=== PATIENT | female | born 1970 | race Caucasian/White ===

== ENCOUNTER → 2016-07-09 | Day surgery (SDC) | payer MEDICAID ==
[~2016-07-09] MED LIST: Acetaminophen/oxyCODONE 325-5 MG Tab PO PRN; Bupivacaine 0.5% 10 ML SDV INJECT ONE; Bupivacaine 0.5% 10 ML SDV ONE; HYDROmorphone 1 MG/ML Syringe IV ONE; Ketamine 500 mg/10 ML MDV IV ONE; Lactated Ringers 1,000 ML IV ONE; Lactated Ringers 1,000 ML IV SCH; Lidocaine 1% 30 ML SDV INJECT ONE; Lidocaine 1% 30 ML SDV ONE; Midazolam 1 MG/ML 2 ML SDV IV ONE; Propofol 200 MG/20 ML SDV IV ONE; Sodium Chloride 0.9% 10 ML Syringe FLUSH PRN; ceFAZolin 1 GM in Premix Bag 1 BAG IV ONE; fentaNYL 100 MCG/2 ML SDV IV ONE
--- NOTE | 2016-07-09 12:15 | PCM.OPNOTE ---
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 [place] 3.0 cannulated, 3.0 locking and non locking with anchorage plate applied. 2.0 sourav to 4th met. Well padded splint applied.
[2016-07-09 14:24] VITALS: BP 106/69
--- NOTE | 2016-07-09 16:49 | OR ---
DATE: 07/09/2016 PREOPERATIVE DIAGNOSES: 1. Left foot dorsiflexed first metatarsal. 2. Right foot metatarsalgia. POSTOPERATIVE DIAGNOSES: 1. 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 2. Left foot metatarsalgia. PROCEDURE PERFORMED: 1. Left foot first metatarsal cuneiform nonunion excision with bone graft and plantar flexion of the first metatarsal. 2. Left foot fourth metatarsal dorsiflexion wedge osteotomy. ANESTHESIA: Local MAC with preoperative local block of 10 mL of 1:1 mixture of 1% lidocaine plain and 0.5% Marcaine plain. TOURNIQUET TIME: 131 minutes total, it was let down at 90 minutes and then put back up for 41 minutes. ESTIMATED BLOOD LOSS: Minimal. SPECIMEN: None. COMPLICATIONS: None. FINDINGS: There was a fibrous nonunion located at the first metatarsal cuneiform site at the prior bone grafting area. INDICATIONS: Jak is a 46-year-old female, who is status post left foot surgery. Approximately 3 years ago, I did a Lapidus procedure with a bone wedge to plantar flex and lengthen her first metatarsal. She did break through that previous surgical site. She is not really having any pain at the surgical site, however she is having pain to the metatarsals, mostly the fourth metatarsal. It is present whenever she is standing or walking and it feels like she is getting too much pressure under the ball of her foot. She has really not been able to go back to work, which is on her feet all day. We have tried multiple different offloading inserts with no relief. X-rays, 3-views of the right foot reveals some moderate shortening of first metatarsal since that first surgery was performed and also some elevation, she has two screws that broke at the surgical site. It appears that her fourth metatarsal head is more prominent plantarly than the remainder of the metatarsal head. There is also some cortical thickenings at the fourth metatarsal. No signs of fracture. It looks on x-rays that the first metatarsal cuneiform is healed. The patient voiced good understanding of proposed procedure and possible complications, and elects to have surgery at this time. DESCRIPTION OF PROCEDURE: The patient was taken to the operating room, lying in the supine position. After adequate anesthesia induction as described above, the left foot was prepped and draped in the usual sterile fashion. A pneumatic ankle tourniquet was inflated to 225 mmHg. Attention was then directed to the dorsal aspect of the medial foot overlying the first metatarsal cuneiform joint area. Incision was made at the prior incision area. Sharp and blunt dissection was performed down to the level of the extensor tendon and the periosteum. The #15 blade was used to incise the area at the first metatarsal cuneiform joint. It was noted at this time that the first metatarsal cuneiform joint had not healed together, where a prior bone graft had been inserted. Instead, this was a fibrotic nonunion and unstable. At this point, a Hintermann retractor was put in this area and the joint was retracted. All fibrotic nonunion material was excised using a curette and a bur. The curette was used down to good healthy bleeding bone. An osteotome was used to fenestrate the area as well as a 0.45 K- wire. Once all bad tissue was removed, a 6 mm allograft bone wedge was placed at the area. It was noted that the first metatarsal was plantar flexed a good amount at this time. A Erie 3.0 cannulated screw was then inserted across the first metatarsal through the graft into the medial cuneiform. The graft was noted to be stable and compressed at the arthrodesis site. X-ray was used to verify proper positioning of the graft and the first metatarsal on the graft. A Chantel Gogebic plate was then placed at the dorsal aspect of the arthrodesis site, and 3.0 locking and nonlocking screws were used to secure the plate. The area was then again verified with fluoroscopy and it was noted to be in proper positioning as well as all the screws, the bone graft was also noted to be stable and in a good position with good compression at that joint. A lateral was also used with a foot simulated weightbearing, and it was noted that the first metatarsal was in a good plantar flexed position. Attention was then directed to the fourth metatarsal, where an incision was made overlying the fourth MTPJ. Sharp and blunt dissection was made down to the level of the joint capsule, which was sharply incised. The fourth metatarsal head was exposed at this time, and a sagittal saw was used to make a bone cut starting just proximal to the articular cartilage of the fourth metatarsal and exiting just at the neck. Another bone cut was made to take a wedge out of this area so that the fourth metatarsal head would be dorsiflexed. A K-wire from the screw set was used as temporary fixation. Fluoroscopy was used to verify proper positioning of the metatarsal head and pin. The osteotomy site was fixated with a 2.0 cannulated screw. Fluoroscopy was then again used to verify proper amount of dorsiflexion of the fourth metatarsal head. The area was then irrigated with copious amounts of sterile saline. I did check the fourth MTPJ, and the screw was not entering the cartilage of that area. Deep closure was completed with 3- 0 Vicryl, and skin closure was completed with 4-0 nylon. The left foot was dressed with Xeroform to the incision site, fluffs, Webril, and a well-padded L and U splint with the foot in neutral position. The patient tolerated the procedure well and left the operating room for recovery with vital signs stable and in good condition with vascular status intact to the left foot as noted by immediate hyperemia to all digits upon deflation of the ankle tourniquet. She was discharged home nonweightbearing when she met hospital discharge requirements. [facility] /[id number]
== END ==
LOC: DL.SDS 07:08
PROVIDERS: ATTEND Podiatrist
DX: M77.41 Metatarsalgia, right foot (principal)
CPT/HCPCS: 28106; 28306; A9270; J0690; J1170; J2250; J2704; J3010; J7120; C1713; C1762

== ENCOUNTER 2017-01-14 08:29 | Day surgery (SDC) | payer MEDICAID ==
[~2017-01-14 08:29] MED LIST changes: -Acetaminophen/oxyCODONE 325-5 MG Tab PO PRN; -Bupivacaine 0.5% 10 ML SDV INJECT ONE; -Bupivacaine 0.5% 10 ML SDV ONE; -HYDROmorphone 1 MG/ML Syringe IV ONE; -Ketamine 500 mg/10 ML MDV IV ONE; -Lactated Ringers 1,000 ML IV ONE; -Lidocaine 1% 30 ML SDV INJECT ONE; -Lidocaine 1% 30 ML SDV ONE; -Midazolam 1 MG/ML 2 ML SDV IV ONE; -Propofol 200 MG/20 ML SDV IV ONE; -fentaNYL 100 MCG/2 ML SDV IV ONE
[2017-01-14] MEDS ORDERED: Propofol 1,000 MG/100 ML SDV IV ONE (08:30)
[2017-01-14] MEDS ORDERED: Midazolam 1 MG/ML 2 ML SDV IV ONE (08:30)
[2017-01-14] MEDS ORDERED: fentaNYL 100 MCG/2 ML SDV IV ONE (08:30)
[2017-01-14] MEDS ORDERED: Ketorolac 30 MG/ML SDV IVPUSH ONE (08:30)
[2017-01-14] MEDS ORDERED: Dexamethasone 4 MG/ML SDV IV ONE (08:30)
[2017-01-14] MEDS ORDERED: Ondansetron 4 MG/2 ML SDV IV ONE (08:30)
[2017-01-14] MEDS ORDERED: Bupivacaine 0.5% 10 ML SDV INJECT ONE ×5 (08:30→11:14)
[2017-01-14] MEDS ORDERED: Lidocaine 1% 30 ML SDV INJECT ONE ×5 (08:30→11:14)
[2017-01-14] MEDS ORDERED: Lidocaine 1% 30 ML SDV ONE (09:27)
[2017-01-14] MEDS ORDERED: Bupivacaine 0.5% 10 ML SDV ONE (09:27)
[2017-01-14] MEDS ORDERED: Midazolam 1 MG/ML 2 ML SDV ONE (09:31)
[2017-01-14] MEDS ORDERED: Ketorolac 30 MG/ML SDV ONE (09:32)
[2017-01-14] MEDS ORDERED: fentaNYL 100 MCG/2 ML SDV ONE (09:32)
[2017-01-14] MEDS ORDERED: Ondansetron 4 MG/2 ML SDV ONE (09:32)
[2017-01-14] MEDS ORDERED: Dexamethasone 4 MG/ML SDV ONE (09:32)
[2017-01-14] MEDS ORDERED: Acetaminophen/oxyCODONE 325-5 MG Tab PO PRN (11:51)
--- NOTE | 2017-01-14 11:54 | PCM.OPNOTE ---
- General Post-Op/Procedure Note Date of Surgery/Procedure: 01/14/17 Operative Procedure(s): left foot hardware removal, 3rd metatarsal condylectomy Pre Op Diagnosis: left foot hardware with 3rd metatarsalgia Post-Op Diagnosis: shady Anesthesia Technique: Local, MAC Primary Surgeon: Taryn Lee Anesthesia Provider: Oscar Robledo EBL in mLs: 5 Complications: none Condition: Good Free Text/Narrative:: Intake & Output 01/13/17 01/14/17 01/14/17 22:59 06:59 14:59 Intake Total 50 Balance 50 Pt tolerated procedure well and was transported to recovery with vascular status intact to left foot. TT 68 mins. Well padded compression dressing applied.
[2017-01-14 12:58] VITALS: BP 116/75
--- NOTE | 2017-01-18 08:22 | OR ---
DATE: 01/14/2017 PREOPERATIVE DIAGNOSES: 1. Left foot painful hardware. 2. Left foot third metatarsalgia. POSTOPERATIVE DIAGNOSES: 1. Left foot painful hardware. 2. Left foot third metatarsalgia. PROCEDURES PERFORMED: 1. Left foot hardware removal. 2. Left foot third metatarsal condylectomy. ANESTHESIA: Local MAC with preoperative local block of 10 mL of 1:1 mixture of 1% lidocaine plain and 0.5% Marcaine plain. TOURNIQUET TIME: Sixty eight minutes, pneumatic ankle tourniquet. ESTIMATED BLOOD LOSS: Minimal. SPECIMEN: None. COMPLICATIONS: None. INDICATIONS: Jak is a 46-year-old female, who presents status post left foot revision surgery back in July. She has been back into her regular shoes. She is still having pain in the ball of the foot, localized under the third digit area. This is worse when she is walking or during the push-off phase of gait. We have tried offloading inserts, metatarsal padding, and activity modifications with no relief. X-rays of the left foot reveal screw and plates intact to the left foot, the first metatarsal cuneiform has a screw broken at the proximal aspect, with the first metatarsal again shortened and dorsiflexed postoperatively. However it does appear that the fusion site is healing well with allograft incorporating. Metatarsals look to be healed with all screws intact. The patient voiced good understanding of proposed procedure and possible complications, elects to have surgery at this time. The patient was not having any pain at the fusion site and we agreed to keep the hardware in on that area and remove only the screws to the forefoot where she is having pain. DESCRIPTION OF THE PROCEDURE: The patient was taken the operating room, lying in supine position. After adequate anesthesia induction as described above, the left foot was prepped and draped in the usual sterile fashion. A pneumatic ankle tourniquet was inflated to 225 mmHg. Attention was then directed to the left foot forefoot where an approximately 4 cm linear incision was made overlying the third metatarsophalangeal joint area. Sharp and blunt dissection were performed down to the level of the metatarsal. Through this same incision, I was able to locate the screw at the second distal metatarsal and that was completely removed. I was also able to locate the screw on the fourth metatarsal which was completely removed. The screw at the third metatarsal head was then removed and fluoroscopy was used to take an axial view of the metatarsal heads. This did show a slightly prominent metatarsal and viewing intraoperatively, it did look like the condyle was prominent underneath that third metatarsal head. I did take a sagittal saw and removed the plantar condyles, I then took a rasp and I did rasp the area down, so it had nice smooth bone at the plantar aspect. I then took another fluoroscopy view to verify it was at the same level as the surrounding metatarsal heads. I then irrigated the area with copious amounts of sterile saline. I did feel for any prominences through the plantar skin, there was none noted. The deep closure was completed with 2-0 Vicryl and the skin closure was completed with 4-0 nylon. The area was dressed with Xeroform to the incision site, fluffs, Webril, and an Elías wrap. She was placed into a postoperative Cam boot. She tolerated the anesthesia and the procedure well and was transferred to recovery with vital signs stable and vascular status intact as noted by immediate hyperemia to all digits upon deflation of the ankle tourniquet. The patient was then discharged home when she met hospital discharge requirements. [facility] /[id number]
== END 2017-01-14 12:45 | disposition home or self-care (01) ==
LOC: DL.SDS 08:29
PROVIDERS: ATTEND Podiatrist
DX: T84.84XA Pain due to internal orthopedic prosthetic devices, implants and grafts, initial encounter (principal); M77.42 Metatarsalgia, left foot; F41.8 Other specified anxiety disorders; J45.909 Unspecified asthma, uncomplicated; E03.9 Hypothyroidism, unspecified; Z98.890 Other specified postprocedural states; Z90.49 Acquired absence of other specified parts of digestive tract; Z98.51 Tubal ligation status; Z79.899 Other long term (current) drug therapy; J30.2 Other seasonal allergic rhinitis; F17.210 Nicotine dependence, cigarettes, uncomplicated
CPT/HCPCS: 20680; 28112; 76000; 81025; J0690; J1100; J1885; J2250; J2405; J2704; J3010; J7120

== ENCOUNTER 2021-08-04 05:23 | Day surgery (SDC) | payer MEDICAID, MEDICARE, OTHER ==
[2021-08-04] MEDS ORDERED: fentaNYL 100 MCG/2 ML SDV IV ONE ×7 (05:24→07:00)
[2021-08-04] MEDS ORDERED: Midazolam 1 MG/ML 2 ML SDV IV ONE ×7 (05:24→06:50)
[2021-08-04] MEDS ORDERED: fentaNYL 100 MCG/2 ML SDV ONE (05:57)
[2021-08-04] MEDS ORDERED: Midazolam 1 MG/ML 2 ML SDV ONE (05:57)
[2021-08-04] MEDS ORDERED: Sodium Chloride 0.9% 10 ML Syringe FLUSH PRN (07:28)
[2021-08-04] MEDS ORDERED: Dextrose 5%-0.45% NaCl 1,000 ML IV SCH (07:30)
[2021-08-04] MEDS ORDERED: Sodium Chloride 0.9% 10 ML Syringe FLUSH SCH (09:00)
[2021-08-04 15:23] VITALS: BP 106/63; PULSE 76
== END 2021-08-04 09:11 | disposition home or self-care (01) ==
LOC: DL.ENDO 05:23
PROVIDERS: ATTEND Internal Medicine Gastroenterology
DX: Z12.11 Encounter for screening for malignant neoplasm of colon (principal); K57.30 Diverticulosis of large intestine without perforation or abscess without bleeding; F17.210 Nicotine dependence, cigarettes, uncomplicated; E66.09 Other obesity due to excess calories; F41.1 Generalized anxiety disorder; E03.9 Hypothyroidism, unspecified; Z90.49 Acquired absence of other specified parts of digestive tract; Z98.890 Other specified postprocedural states; Z68.36 Body mass index [BMI] 36.0-36.9, adult
CPT/HCPCS: J2250; J3010; J7042

== ENCOUNTER 2023-10-17 00:55 | Emergency (ER) | payer MEDICARE, MEDICAID ==
[2023-10-17 01:18] VITALS: BP 116/76; PULSE 90
[2023-10-17] MEDS: traMADol 50 MG Tab PO ONE (02:43)
[2023-10-17] MEDS: Take Home: traMADol 50 MG, 4 Tab Pack PO ONE (02:59)
== END 2023-10-17 03:13 | disposition home or self-care (01) ==
LOC: DL.ED 00:55
DX: M25.562 Pain in left knee (principal); J44.9 Chronic obstructive pulmonary disease, unspecified; E66.9 Obesity, unspecified; Z79.899 Other long term (current) drug therapy; Z88.5 Allergy status to narcotic agent; Z88.8 Allergy status to other drugs, medicaments and biological substances; Z91.048 Other nonmedicinal substance allergy status
CPT/HCPCS: 73562; 99283; A9270